=== PATIENT | female | born 1995 | race Caucasian/White ===

== ENCOUNTER 2021-07-04 14:35 | Emergency (ER) | payer OTHER ==
[2021-07-04 15:04] LABS: Bilirubin Neg (Negative); Blood, Urine 150 (Negative); Glucose, Urine (Dipstick) Normal (Negative); Ketone, Urine Negative (Negative); Leukocyte 25 (Negative); Nitrite Negative (Negative); Protein, Urine (Dipstick) Negative (Neg-Trace)
[2021-07-04 15:18] LABS: Clarity Clear (Clear)
[2021-07-04 15:21] LABS: Bacteria/HPF 1+ HPF (None Seen); RBC/HPF 21-50 HPF (0-3); Squamous Epithelial 21-50 HPF (0-3); WBC/HPF 0-3 HPF (0-3)
== END 2021-07-04 16:40 | disposition home or self-care (01) ==
LOC: CSHERS 14:35
DX: O20.9 Hemorrhage in early pregnancy, unspecified (principal); Z3A.17 17 weeks gestation of pregnancy
CPT/HCPCS: 76856; 81003; 81015; 86900; 86901; 90384; 96372

== ENCOUNTER 2021-12-06 17:23 | Inpatient (IN) | payer OTHER ==
[~2021-12-06 17:23] MED LIST: Bupivacaine/Epinephrine 0.25% 30 ML VIAL ONE
[2021-12-06] MEDS ORDERED: Promethazine HCl 25 MG/ML VIAL IM PRN (17:24)
[2021-12-06] MEDS ORDERED: Ibuprofen 800 MG TAB PO PRN (17:24)
[2021-12-06] MEDS ORDERED: hydrALAZINE 20 MG/ML VIAL SLOW IVP PRN (17:24)
[2021-12-06] MEDS ORDERED: HYDROcodone/Acetaminophen 5/325 mg Tablet PO PRN ×2 (17:24)
[2021-12-06] MEDS ORDERED: Lidocaine 1% (PF) 30 ML VIAL SC PRN (17:24)
[2021-12-06] MEDS ORDERED: Docusate 100 MG CAP PO PRN (17:24)
[2021-12-06] MEDS ORDERED: Acetaminophen 500 MG TAB PO PRN (17:24)
[2021-12-06] MEDS ORDERED: Butorphanol Tartrate 1 MG/ML VIAL SLOW IVP PRN (17:24)
[2021-12-06] MEDS ORDERED: Misoprostol 200 MCG TAB PR PRN (17:24)
[2021-12-06] MEDS ORDERED: Diphenoxylate HCl/Atropine Tablet PO PRN ×2 (17:24)
[2021-12-06] MEDS ORDERED: Ondansetron PF 4 MG/2 ML Vial IVP PRN (17:24)
[2021-12-06] MEDS ORDERED: NS w/ Oxytocin 30 units 500 ML IV SCH ×2 (17:30)
[2021-12-06] MEDS: Lactated Ringer's 1,000 ML IV SCH ×2 (18:27→22:14)
[2021-12-06 18:44] VITALS: BMI 32.9
[2021-12-06 18:51] LABS: Hemoglobin 9.5 g/dL (12.0-15.5); Mean Corpuscular HGB CONC 33.1 g/dL (32.0-36.0); Mean Corpuscular Hemoglobin 29.1 pg (27.0-33.0); Mean Corpuscular Volume 87.8 fl (81.6-98.3); Platelet Count 199 10x3/uL (150-450); RBC Distribution Width 13.4 % (11.5-14.5); Red Blood Cell (RBC) Count 3.27 10x6/uL (3.90-5.03); White Blood Cell (WBC) Count 10.3 10x3/uL (3.5-10.5)
[2021-12-06 19:56] LABS: HBSAg Index 0.24 S/CO (0-0.99); Hep B Surf Ag Non-Reactive S/CO (NonReactive); Syphilis Antibody Nonreactive (Nonreactive); Syphilis Antibody Index 0.04 S/CO (<1.00 Non-Reactive)
[2021-12-06 20:16] LABS: HIV (1/2) Antibody/Antigen Non-Reactive (NonReactive); HIV 1/2 INDEX 0.09 S/CO (<1.00)
[2021-12-07] MEDS ORDERED: Fentanyl 2 mcg/Bup 0.1% Cadd 100 ML ONE (00:35)
[2021-12-07] MEDS ORDERED: Fentanyl 100 MCG/2 ML VIAL ONE (00:47)
[2021-12-07] MEDS ORDERED: Communication Order-Pharmacy FS SCH (01:30)
[2021-12-07] MEDS ORDERED: Lactated Ringer's 500 ML IV PRN (01:30)
[2021-12-07] MEDS ORDERED: diphenhydrAMINE 50 MG/ML VIAL IVP PRN (01:30)
[2021-12-07] MEDS ORDERED: Ondansetron PF 4 MG/2 ML Vial IVP PRN ×2 (01:30→05:39)
[2021-12-07] MEDS ORDERED: ePHEDrine Sulfate 50 MG/10 ML VIAL SLOW IVP PRN (01:30)
[2021-12-07] MEDS ORDERED: Moisturizing Cream (Eucerin) 113 GM JAR TOP PRN (01:30)
[2021-12-07] MEDS ORDERED: Promethazine HCl 25 MG/ML VIAL IM PRN (01:30)
[2021-12-07] MEDS ORDERED: Acetaminophen 325 MG TAB PO PRN (01:30)
[2021-12-07] MEDS ORDERED: Naloxone HCl 0.4 mg/ml Vial IVP PRN ×2 (01:30)
[2021-12-07] MEDS ORDERED: Fentanyl 2 mcg/Bupivacaine 0.1% Cassette 100 ML EPIDURAL SCH (01:30)
[2021-12-07] MEDS: Lactated Ringer's 1,000 ML IV SCH (02:00)
[2021-12-07] MEDS ORDERED: Bisacodyl 10 MG SUPP PR PRN (05:39)
[2021-12-07] MEDS ORDERED: Misoprostol 200 MCG TAB VAG PRN (05:39)
[2021-12-07] MEDS ORDERED: Boostrix 0.5 ML (Tdap) VIAL (>/=7 yrs of age) IM ONE (05:39)
[2021-12-07] MEDS ORDERED: diphenhydrAMINE 25 MG CAP PO PRN (05:39)
[2021-12-07] MEDS ORDERED: Zolpidem Tartrate 5 MG TAB PO PRN (05:39)
[2021-12-07] MEDS ORDERED: Preparation H Ointment 28 GM TUBE PR PRN (05:39)
[2021-12-07] MEDS ORDERED: Milk Of Magnesia 30 ML UDCUP PO PRN (05:39)
[2021-12-07] MEDS ORDERED: Benzocaine-Menthol 82.5 ML CAN TOP PRN (05:39)
[2021-12-07] MEDS ORDERED: Lanolin Ointment 7 GM TUBE TOP PRN (05:39)
[2021-12-07] MEDS ORDERED: hydrALAZINE 20 MG/ML VIAL SLOW IVP PRN (05:39)
[2021-12-07] MEDS ORDERED: NS w/ Oxytocin 30 units 500 ML IV SCH (05:45)
[2021-12-07 07:53] LABS: SARS-CoV-2 NAA Rapid Test Not Detected (NotDetected)
[2021-12-07] MEDS: Prenatal Vitamin 1 TAB PO SCH (08:53)
[2021-12-07] MEDS: Ferrous Sulfate 325 MG TAB PO SCH ×2 (08:53→17:16)
[2021-12-07] MEDS: Docusate 100 MG CAP PO SCH ×2 (08:53→20:41)
[2021-12-07] MEDS: Ibuprofen 800 MG TAB PO SCH ×3 (08:53→23:02)
[2021-12-07] MEDS: HYDROcodone/Acetaminophen 5/325 mg Tablet PO PRN ×2 (17:10→20:41)
[2021-12-08] MEDS: Ibuprofen 800 MG TAB PO SCH ×3 (06:02→21:41)
[2021-12-08] MEDS: Docusate 100 MG CAP PO SCH ×2 (08:26→21:41)
[2021-12-08] MEDS: Prenatal Vitamin 1 TAB PO SCH (08:26)
[2021-12-08] MEDS: HYDROcodone/Acetaminophen 5/325 mg Tablet PO PRN ×3 (08:26→20:13)
[2021-12-08] MEDS: Ferrous Sulfate 325 MG TAB PO SCH ×2 (09:00→18:17)
[2021-12-09] MEDS: HYDROcodone/Acetaminophen 5/325 mg Tablet PO PRN ×2 (03:48→10:40)
[2021-12-09] MEDS: Ibuprofen 800 MG TAB PO SCH ×2 (05:56→14:26)
[2021-12-09] MEDS: Docusate 100 MG CAP PO SCH (10:42)
[2021-12-09] MEDS: Ferrous Sulfate 325 MG TAB PO SCH (10:42)
[2021-12-09] MEDS: Prenatal Vitamin 1 TAB PO SCH (10:42)
[2021-12-09 10:52] VITALS: BP 119/65; TEMP 98
== END 2021-12-09 15:30 | disposition home or self-care (01) | DRG 807 ==
LOC: CSHLD 17:23 → CSHPP 12-07 07:35
PROVIDERS: ADMIT Obstetrics & Gynecology; ATTEND Obstetrics & Gynecology
PROC: 3E033VJ Introduction of Other Hormone into Peripheral Vein, Percutaneous Approach (ICD-10-PCS; 2021-12-06)
PROC: 10D07Z6 Extraction of Products of Conception, Vacuum, Via Natural or Artificial Opening (ICD-10-PCS; principal; 2021-12-07)
DX: O36.5930 Maternal care for other known or suspected poor fetal growth, third trimester, not applicable or unspecified (principal); Z37.0 Single live birth; Z3A.38 38 weeks gestation of pregnancy; Z20.822 Contact with and (suspected) exposure to COVID-19; O26.893 Other specified pregnancy related conditions, third trimester; Z67.11 Type A blood, Rh negative; Z90.49 Acquired absence of other specified parts of digestive tract; O99.844 Bariatric surgery status complicating childbirth; O32.8XX0 Maternal care for other malpresentation of fetus, not applicable or unspecified
CPT/HCPCS: 36415; 51702; 85027; 86780; 86850; 86870; 86900; 86901; 87340; 87389; 88307; J2405; J2590; J7120; U0002

== ENCOUNTER 2021-12-10 13:07 | Emergency (ER) | payer OTHER ==
[2021-12-10 14:13] LABS: #Eosinphils 0.1 10x3/uL (0.0-0.5); #Monocytes 0.3 10x3/uL (0.0-1.1); #Neutrophils 6.2 10x3/uL (1.5-8.4); %Basophils 0.1 % (0.0-2.0); %Eosinophils 0.9 % (0.0-6.0); %Lymphocytes 16.9 % (18.0-47.0); %Neutrophils 77.7 % (40.0-75.0); Hemoglobin 9.4 g/dL (12.0-15.5); Mean Corpuscular HGB CONC 32.8 g/dL (32.0-36.0); Mean Corpuscular Hemoglobin 28.8 pg (27.0-33.0); Mean Platelet Volume 9.4 fl (7.4-10.4); Platelet Count 184 10x3/uL (150-450); RBC Distribution Width 13.4 % (11.5-14.5); Red Blood Cell (RBC) Count 3.26 10x6/uL (3.90-5.03)
[2021-12-10 14:26] LABS: ALT (SGPT) 341 U/L (8-55); AST (SGOT) 366 U/L (5-34); Albumin 3.3 g/dL (3.5-5.0); Alkaline Phosphatase 278 U/L (40-110); Anion Gap 14 mmol/L (10-20); BUN (Urea Nitrogen) 7 mg/dL (7.0-18.7); Calc. Creatinine Clearance 0 mL/min (70-130); Calcium 8.9 mg/dL (7.8-10.44); Carbon Dioxide 23 mmol/L (22-29); Chloride 107 mmol/L (98-107); Estimated GFR 123; Globulin 3.4 g/dL (2.4-3.5); Glucose 91 mg/dL (70-105); Potassium 3.9 mmol/L (3.5-5.1); Protein, Total 6.7 g/dL (6.0-8.3); Sodium 140 mmol/L (136-145)
[2021-12-10] MEDS ORDERED: Metoclopramide HCl 10 MG/2 ML VIAL ONE (14:37)
[2021-12-10] MEDS ORDERED: Caffeine/Sodium Benzoate 0.5 GM in Sodium Chloride 0.9% 1,000 ML IVPB SCH (15:00)
[2021-12-10 15:05] LABS: Bilirubin Neg (Negative); Blood, Urine 250 (Negative); Glucose, Urine (Dipstick) Normal (Negative); Ketone, Urine 15 mg/dL (Negative); Leukocyte 500 (Negative); Nitrite Positive (Negative); Protein, Urine (Dipstick) 30 mg/dl (Neg-Trace); Specific Gravity, Urine 1.015 (1.005-1.030)
[2021-12-10 15:16] LABS: Clarity Very Cloudy (Clear)
[2021-12-10 15:18] LABS: RBC/HPF Greater than 50 HPF (0-3); WBC/HPF Greater than 50 HPF (0-3)
[2021-12-10 15:19] LABS: Bacteria/HPF 3+ HPF (None Seen); Transitional Epithelial 0-3 HPF (None Seen)
== END 2021-12-10 22:07 | disposition home or self-care (01) ==
LOC: CSHERS 13:07
DX: T88.59XA Other complications of anesthesia, initial encounter (principal); G44.40 Drug-induced headache, not elsewhere classified, not intractable; N39.0 Urinary tract infection, site not specified; R74.01 Elevation of levels of liver transaminase levels
CPT/HCPCS: 36415; 80053; 81003; 81015; 85025; 87077; 87086; 87186; 96374; 96375; J0706; J2765; J7050